=== PATIENT | male | born 2000 ===

== ENCOUNTER → 2020-11-02 11:29 | Outpatient (CLI) | payer OTHER, SELFPAY ==
[2020-11-02 12:15] LABS: COVID19 -Nasal RAPID Negative (Negative)
[2020-11-02 12:23] LABS: Monotest Positive (Negative)
== END ==
PROVIDERS: Visit Provider Physician Assistant
DX: J02.9 Acute pharyngitis, unspecified (principal)
CPT/HCPCS: 86318; 87070; 87635